=== PATIENT | female | born 1945 | race Caucasian/White ===

== ENCOUNTER 2017-03-28 22:32 | Emergency (ER) | payer OTHER ==
[2017-03-28] MEDS ORDERED: ONDANSETRON 4 MG/2 ML VIAL IVP ONE (22:39)
[2017-03-28] MEDS ORDERED: NS 1,000 ML IV ONE (22:39)
[2017-03-28 22:56] VITALS: TEMP 98.2
[2017-03-28 23:03] LABS: % IMMATURE GRANULYOCYTES 0.3 % (0.0-1.1); ABSOLUTE IMMATURE GRANULOCYTES 0.03 10^3/uL (0.00-0.10); ADD DIFF? NO; ADD MORPH? NO; ADD SCAN? NO; ATYPICAL LYMPHOCYTE FLAG 10 (0-99); FRAGMENT RBC FLAG 0 (0-99); HEMATOCRIT 40.3 % (38.0-47.0); HEMOGLOBIN 13.4 g/dL (12.6-16.3); LEFT SHIFT FLG 0 (0-99); LIPEMIA HEMOLYSIS FLAG 80 (0-99); MEAN CELL HEMOGLOBIN 29.8 pg (27.9-34.1); MEAN CELL HEMOGLOBIN CONCENTR. 33.3 g/dL (32.4-36.7); MEAN CELL VOLUME 89.6 fL (81.5-99.8); MEAN PLATELET VOLUME 9.9 fL (8.7-11.7); PLATELET CLUMPS FLAG 0 (0-99); PLATELET COUNT 285 10^3/uL (150-400); RED CELL DISTRIBUTION WIDTH 12.5 % (11.5-15.2)
--- NOTE | 2017-03-28 23:12 | EDPHY ---
H & P Stated Complaint: BS 377 at 3pm, vomited, last bs 293, vomited again- toal 3 times Time Seen by Provider: 03/28/17 22:56 HPI/ROS: This patient presents with nausea vomiting hyperglycemia. She explains that she did not take her 1000 mg of metformin this morning. She explains that she was out of the metformin at her pill dispenser but actually still has metformin at home but did not think missing a dose would be a problem. She then went to the grocery store in to cookies. She started feeling poorly at 3:00 p.m. with nausea and then developed vomiting as vomited few times since then. She is unable tolerate fluids so she came in for further evaluation. Her peak blood sugar at home was 377 3:00 p.m. 30 minutes prior to arrival was 293. She is still not taken her metformin. Typical doses 1000 in the morning 1000 tonight. She denies any other associated symptoms besides ongoing nausea. ROS: Constitutional: No fevers. No significant fatigue. HEENT: No URI symptoms. No headache. No sore throat. Pulmonary: No cough or shortness of breath Cardiac: No chest pain. No lightheadedness. GI: No abdominal pain. She has mild constipation which is typical for her. Her last bowel movement was 2 days ago. She often goes 3 days without a bowel movement. : She has no symptoms. Integumentary: No rash Neuro: No numbness tingling weakness 10 point ROS is otherwise negative Source: Patient Exam Limitations: No limitations - Personal History Current Tetanus Diphtheria and Acellular Pertussis (TDAP): Yes Tetanus Vaccine Date: <10yrs - Medical/Surgical History Hx Asthma: No Hx Chronic Respiratory Disease: No Hx Diabetes: Yes Hx Cardiac Disease: No Hx Renal Disease: No Hx Cirrhosis: No Hx Alcoholism: No Hx HIV/AIDS: No Hx Splenectomy or Spleen Trauma: No Other PMH: SPINAL INJURY,IMPINGMENT OF LUMBAR SPINE,2008 WITH RESIDUAL SENSORY DEFICITS LEGS/ PCF FOR STENOSIS/WALKS WITH WALKER, RODDED RT FEMUR 2011,FX RT TIBIA 2007//LT MASTEC 38YRS AGO/RT MASTECTOMY 2010/ Left hip repair in - Family History Significant Family History: Heart disease (Patient's mother developed heart disease in her 50s) - Social History Smoking Status: Former smoker Alcohol Use: None Drug Use: None - Physical Exam Exam: Vital signs are normal General Appearance: Alert, no distress. Eyes: Pupils equal and round no pallor or injection. ENT, Mouth: Mucous membranes moist. She does not have free breath. Respiratory: There are no retractions, lungs are clear to auscultation. Cardiovascular: Regular rate and rhythm. No murmur gallop or rub. Gastrointestinal: Abdomen is soft and nontender, no masses, bowel sounds normal. Neurological: GCS 15 with no focal deficits. Skin: Warm and dry, no rashes. Musculoskeletal: Neck is supple nontender. Extremities are symmetrical, full range of motion. Psychiatric: Mood and affect are normal DIFFERENTIAL DIAGNOSIS: After history and physical exam differential diagnosis was considered for hyperglycemia from medication noncompliance, viral illness, mi, UTI, DKA Constitutional: Initial Vital Signs Temperature (C) 36.8 C 03/28/17 22:43 Heart Rate 78 03/28/17 22:43 Respiratory Rate 20 03/28/17 22:43 Blood Pressure 142/79 H 03/28/17 22:43 O2 Sat (%) 93 03/28/17 22:43 O2 Delivery Mode Room Air Allergies/Adverse Reactions: amoxicillin [Amoxicillin] Allergy (Severe, Verified 04/28/15 13:33) Sulfa (Sulfonamide Antibiotics) Allergy (Severe, Verified 04/28/15 13:33) baclofen [Baclofen] Allergy (Intermediate, Verified 04/28/15 13:33) HALLUCINATION diazepam [From Valium] Allergy (Intermediate, Verified 04/28/15 13:33) HALLUCINATION gabapentin [From Neurontin] Allergy (Intermediate, Verified 04/28/15 13:33) HALLUCINATION bupivacaine Allergy (Verified 04/28/15 13:33) PAIN MEDICATION Allergy (Intermediate, Uncoded 04/28/15 13:33) Home Medications: Medication Instructions Recorded Oxycontin 30 mg PO BID 11/29/10 SIMVASTATIN [Zocor] 25 mg PO DAILY 11/29/10 oxyCODONE/APAP 5/325 [Percocet 5 mg PO Q4-6PRN PRN #14 tab 11/29/10 5/325] Cymbalta 06/27/14 Metformin 1000 mg 06/27/14 Omeprazole 06/27/14 Flexeril 04/28/15 Oxygen At Night 04/28/15 Ondansetron Odt [Zofran Odt] 4 - 8 mg PO Q4PRN PRN #4 tab 03/28/17 Cephalexin [Keflex (*)] 500 mg PO TID #21 cap 03/29/17 Medical Decision Making - Diagnostics EKG Interpretation: 12 lead EKG performed shortly after arrival is rule out cardiac ischemia or VA reveals sinus rhythm, rate of 71 Intervals: Normal throughout [place]: Normal throughout ST segments: Normal throughout overall assessment normal EKG. Please refer to trace master for complete read. ED Course/Re-evaluation: IV normal saline bolus Zofran IV with resolution of nausea vomiting I counseled the patient regarding the importance of compliance with the metformin to prevent hyperglycemia Urinalysis is consistent with UTI. She does not have CVA tenderness or fever. Think that she has cystitis. I counseled her regarding this. She is given a 1st dose of Keflex p. o. and tolerated this at without difficulty After workup, no evidence of DKA, sepsis or other concerning findings in this patient. I think that her hyperglycemia again is due to missing her metformin today and perhaps also had a due to her cystitis At the time of discharge she is comfortable with normal vital signs tolerating oral fluid intake without difficulty. Her nausea has resolved - Data Points Laboratory Results: Laboratory Results 03/28/17 22:54 03/28/17 22:54 03/28/17 03/28/17 03/28/17 23:40 22:54 22:54 WBC 11.90 10^3/uL H 10^3/uL (3.80-9.50) RBC 4.50 10^6/uL 10^6/uL (4.18-5.33) Hgb 13.4 g/dL g/dL (12.6-16.3) Hct 40.3 % % (38.0-47.0) MCV 89.6 fL fL (81.5-99.8) MCH 29.8 pg pg (27.9-34.1) MCHC 33.3 g/dL g/dL (32.4-36.7) RDW 12.5 % % (11.5-15.2) Plt Count 285 10^3/uL 10^3/uL (150-400) MPV 9.9 fL fL (8.7-11.7) Neut % (Auto) 71.7 % % (39.3-74.2) Lymph % (Auto) 21.7 % % (15.0-45.0) [place] % (Auto) 5.6 % % (4.5-13.0) Eos % (Auto) 0.3 % L % (0.6-7.6) Baso % (Auto) 0.4 % % (0.3-1.7) Nucleat RBC Rel Count 0.0 % % (0.0-0.2) Absolute Neuts (auto) 8.53 10^3/uL H 10^3/uL (1.70-6.50) Absolute Lymphs (auto) 2.58 10^3/uL 10^3/uL (1.00-3.00) Absolute Monos (auto) 0.67 10^3/uL 10^3/uL (0.30-0.80) Absolute Eos (auto) 0.04 10^3/uL 10^3/uL (0.03-0.40) Absolute Basos (auto) 0.05 10^3/uL 10^3/uL (0.02-0.10) Absolute Nucleated RBC 0.00 10^3/uL 10^3/uL (0-0.01) Immature Gran % 0.3 % % (0.0-1.1) Immature Gran # 0.03 10^3/uL 10^3/uL (0.00-0.10) Sodium 132 mEq/L L mEq/L (134-144) Potassium 4.0 mEq/L mEq/L (3.5-5.2) Chloride 91 mEq/L L mEq/L (97-110) Carbon Dioxide 25 mEq/l mEq/l (22-31) Anion Gap 16 mEq/L mEq/L (8-16) BUN 9 mg/dL mg/dL (7-23) Creatinine 0.5 mg/dL L mg/dL (0.6-1.0) Estimated GFR > 60 Glucose 288 mg/dL H mg/dL (70-100) Calcium 9.6 mg/dL mg/dL (8.5-10.4) Total Bilirubin 0.6 mg/dL mg/dL (0.1-1.4) Conjugated Bilirubin 0.3 mg/dL mg/dL (0.0-0.5) Unconjugated Bilirubin 0.3 mg/dL mg/dL (0.0-1.1) AST 20 IU/L IU/L (14-46) ALT 28 IU/L IU/L (9-52) Alkaline Phosphatase 79 IU/L IU/L (38-126) Total Protein 7.3 g/dL g/dL (6.3-8.2) Albumin 4.1 g/dL g/dL (3.5-5.0) Lipase 110.0 IU/L IU/L (23-300) Urine Color YELLOW Urine Appearance HAZY Urine pH 5.5 (5.0-7.5) Ur Specific [place] 1.010 (1.002-1.030) Urine Protein NEGATIVE (NEGATIVE) Urine Ketones TRACE H (NEGATIVE) Urine Blood TRACE H (NEGATIVE) Urine Nitrate NEGATIVE (NEGATIVE) Urine Bilirubin NEGATIVE (NEGATIVE) Urine Urobilinogen 0.2 EU EU (0.2-1.0) Ur Leukocyte Esterase 1+ H (NEGATIVE) Urine RBC 1-3 /hpf /hpf (0-3) Urine WBC >182 /hpf H /hpf (0-3) Ur Epithelial Cells 2+ /lpf H /lpf (NONE-1+) Urine Bacteria 3+ /hpf H /hpf (NONE SEEN) Urine Yeast PRESENT /hpf /hpf (NONE SEEN) Urine Glucose 3+ H (NEGATIVE) Medications Given: Discontinued Medications Sodium Chloride (Ns) 1,000 mls @ 0 mls/hr IV ONCE ONE; Wide Open PRN Reason: Protocol Stop: 03/28/17 22:40 Last Admin: 03/28/17 22:55 Dose: 1,000 mls Ondansetron HCl (Zofran) 4 mg IVP EDNOW ONE Stop: 03/28/17 22:40 Last Admin: 03/28/17 22:58 Dose: 4 mg Departure - Departure Disposition: Home, Routine, Self-Care Clinical Impression: Cystitis Hyperglycemia due to type 2 diabetes mellitus Qualifiers: Diabetes mellitus shelter insulin use: unspecified shelter insulin use status Qualified Code(s): E11.65 - Type 2 diabetes mellitus with hyperglycemia Vomiting Qualifiers: Vomiting type: unspecified Vomiting Intractability: non-intractable Nausea presence: without nausea Qualified Code(s): R11.11 - Vomiting without nausea Condition: Good Instructions: Diabetic Hyperglycemia (ED) Additional Instructions: Diagnoses: 1. Hyperglycemia 2. Vomiting 3. Cystitis Next Plan: Take your metformin when you get home. Drink plenty fluids Light diet to feel improved Zofran for nausea or vomiting if needed. Stop the trimethoprim intake the Keflex antibiotic for your bladder infection. After he finished the Keflex he can restart trimethoprim. Return for any significant worsening despite treatment plan. Referrals: BASILIO GRAHAM [Primary Care Provider] - As per Instructions Prescriptions: Cephalexin [Keflex (*)] 500 mg PO TID #21 cap Ondansetron Odt [Zofran Odt] 4 - 8 mg PO Q4PRN PRN #4 tab PRN Reason: Vomiting
[2017-03-28 23:17] LABS: ALANINE AMINOTRANSFERASE 28 IU/L (9-52); ALBUMIN 4.1 g/dL (3.5-5.0); ALKALINE PHOSPHATASE 79 IU/L (38-126); ANION GAP 16 mEq/L (8-16); ASPARTATE AMINOTRANSFERASE 20 IU/L (14-46); BILIRUBIN,TOTAL 0.6 mg/dL (0.1-1.4); BILIRUBIN-CONJUGATED 0.3 mg/dL (0.0-0.5); BILIRUBIN-UNCONJUGATED 0.3 mg/dL (0.0-1.1); CALCIUM 9.6 mg/dL (8.5-10.4); CARBON DIOXIDE 25 mEq/l (22-31); CHLORIDE 91 mEq/L (97-110); CREATININE 0.5 mg/dL (0.6-1.0); GLOMERULAR FILTRATION RATE > 60; GLUCOSE 288 mg/dL (70-100); SODIUM 132 mEq/L (134-144); TOTAL PROTEIN 7.3 g/dL (6.3-8.2)
--- NOTE | 2017-03-28 23:20 | CPEKG ---
Heart Rate: 71 RR Interval: 845 P-R Interval: 128 QRSD Interval: 102 QT Interval: 420 QTC Interval: 457 P Bradley: 53 QRS Bradley: 45 T Wave Bradley: 45 EKG Severity - NORMAL ECG - EKG Impression: SINUS RHYTHM Electronically Signed By: Jimenez Rock 29-Mar-2017 00:27:14
[2017-03-28 23:54] LABS: COLOR YELLOW; LEUKOCYTE ESTERASE,URINE 1+ (NEGATIVE); NITRITE,URINE NEGATIVE (NEGATIVE); PH,URINE 5.5 (5.0-7.5)
[2017-03-29 00:01] VITALS: BP 147/83; PULSE 72; RESP 19; O2SAT 97
[2017-03-29 00:06] LABS: WBC,URINE >182 /hpf (0-3)
[2017-03-29 00:07] LABS: BACTERIA 3+ /hpf (NONE SEEN); YEAST PRESENT /hpf (NONE SEEN)
[2017-03-29] MEDS ORDERED: CEPHALEXIN 500 MG CAP PO ONE ×2 (00:19→00:49)
[2017-03-29] MEDS ORDERED: ONDANSETRON 4MG PREPACK#2 BTL TAKEHOME ONE ×2 (00:28→00:40)
== END 2017-03-29 00:40 | disposition home or self-care (01) ==
LOC: CED 22:32
DX: E11.65 Type 2 diabetes mellitus with hyperglycemia (principal); N30.90 Cystitis, unspecified without hematuria; B96.89 Other specified bacterial agents as the cause of diseases classified elsewhere; R11.11 Vomiting without nausea; E86.9 Volume depletion, unspecified; Z79.84 Long term (current) use of oral hypoglycemic drugs; Z87.891 Personal history of nicotine dependence
CPT/HCPCS: 93005; 96361; 96374; 99284; J2405; 80048-PO; 80076-PO; 81003-PO; 81015-PO; 83690-PO; 85025-PO